=== PATIENT | female | born 1935 | race Caucasian/White ===

== ENCOUNTER 2021-03-24 10:36 | Emergency (ER) | payer MEDICARE, OTHER ==
--- NOTE | 2021-03-24 11:26 | RAD REPORT ---
EXAM DESCRIPTION: RAD - Hip Right 2 View - 03/24/2021 11:13 am CLINICAL HISTORY: PAIN COMPARISON: No comparisons FINDINGS: No definite right hip fractures identified. The right superior pubic ramus is not well jayna luated. No dislocation. Moderate right acetabular joint degenerative changes. IMPRESSION: Possible right superior pubic ramus fracture. No other fractures are identified. CT coul d confirm if clinically indicated.
--- NOTE | 2021-03-24 11:33 | EDPHYS ---
Physician Documentation [facility] Name: Katherine Serrano Age: 85 yrs Sex: Female : 1935 Arrival Date: 03/24/2021 Time: 10:40 Bed 12 Private MD: ED Physician Rupesh Bella HPI: 03/24 11:02 This 85 yrs old Female presents to ER via Ambulatory with complaints of Hip jr8 pain. 11:02 Onset: The symptoms/episode began/occurred suddenly. Associated signs and symptoms: The jr8 patient has no apparent associated signs or symptoms. Severity of symptoms: At their worst the symptoms were moderate, in the emergency department the symptoms are unchanged. The patient has not experienced similar symptoms in the past. The patient has not recently seen a physician. Patient stated that she almost fell the other day. Twisted her right hip. Since then has been in pain. Seen her primary care physician was prescribed a medication but was unable to afford it. Continues to have pain of the right hip.. Historical: - Allergies: 10:51 Aspirin; ll1 - PMHx: 10:51 Hypertensive disorder; ll1 - PSHx: 10:51 hysterectomy; ll1 - Immunization history:: Client reports receiving the 2nd dose of the Covid vaccine. - Social history:: Smoking status: Patient denies any tobacco usage or history of. ROS: 11:02 Eyes: Negative for injury, pain, redness, and discharge, ENT: Negative for injury, jr8 pain, and discharge, Neck: Negative for injury, pain, and swelling, Cardiovascular: Negative for chest pain, palpitations, and edema, Respiratory: Negative for shortness of breath, cough, wheezing, and pleuritic chest pain, Abdomen/GI: Negative for abdominal pain, nausea, vomiting, diarrhea, and constipation, Back: Negative for injury and pain, Skin: Negative for injury, rash, and discoloration, Neuro: Negative for headache, weakness, numbness, tingling, and seizure. 11:02 MS/extremity: Positive for pain, tenderness, of the Right hip. Exam: 11:02 Constitutional: This is a well developed, well nourished patient who is awake, alert, jr8 and in no acute distress. Cardiovascular: Regular rate and rhythm with a normal S1 and S2. No gallops, murmurs, or rubs. Normal PMI, no JVD. No pulse deficits. Respiratory: Lungs have equal breath sounds bilaterally, clear to auscultation and percussion. No rales, rhonchi or wheezes noted. No increased work of breathing, no retractions or nasal flaring. Abdomen/GI: Soft, non-tender, with normal bowel sounds. No distension or tympany. No guarding or rebound. No evidence of tenderness throughout. Back: No spinal tenderness. No costovertebral tenderness. Full range of motion. Skin: Warm, dry with normal turgor. Normal color with no rashes, no lesions, and no evidence of cellulitis. Neuro: Awake and alert, GCS 15, oriented to person, place, time, and situation. Cranial nerves II-XII grossly intact. Motor strength 5/5 in all extremities. Sensory grossly intact. 11:02 Musculoskeletal/extremity: Extremities: grossly normal except: noted in the Right hip: Patient has mild pain to palpation of the inguinal region and greater trochanteric region of the right hip. No external trauma noted. Full range of motion both passive and active. There is mild pain with internal rotation of the right hip. Remainder of extremity unremarkable with 2+ pulses and normal sensation. Rest of extremities unremarkable. Vital Signs: 10:49 BP 171 / 109; Pulse 85; Resp 17; Temp 98.0; Pulse Ox 100% ; Height 5 ft. 5 in. (165.10 ll1 cm); Pain 9/10; 11:45 BP 168 / 88; Pulse 80; Resp 16; Pulse Ox 100% ; vg1 MDM: 10:44 Patient medically screened. jr8 11:31 Data reviewed: vital signs, nurses notes, radiologic studies, plain films. Data jr8 interpreted: Pulse oximetry: on room air is 100 %. Interpretation: normal. Counseling: I had a detailed discussion with the patient and/or guardian regarding: the historical points, exam findings, and any diagnostic results supporting the discharge/admit diagnosis, radiology results, the need for outpatient follow up, a orthopedic surgeon, to return to the emergency department if symptoms worsen or persist or if there are any questions or concerns that arise at home. 03/24 10:52 Order name: XRAY Hip RIGHT 2 view; Complete Time: 11:30 jr8 Administered Medications: No medications were administered Disposition: 12:11 Co-signature as Attending Physician, Rupesh Bella MD I agree with the assessment and rn plan of care. Attestation: The patient's history, exam findings, diagnostics, and a summary of any interventions or procedures was reviewed in detail with Luis METZ. Disposition Summary: 03/24/21 11:32 Discharge Ordered Location: Home jr8 Problem: new jr8 Symptoms: have improved jr8 Condition: Stable jr8 Diagnosis - Fracture of superior rim of right pubis, initial encounter for closed fracture jr8 Followup: jr8 - With: Noah Avendano MD - When: 1 week - Reason: Recheck today's complaints, Continuance of care, Re-evaluation by your physician Discharge Instructions: - Discharge Summary Sheet jr8 - Simple Pelvic Fracture, Adult jr8 Forms: - Medication Reconciliation Form jr8 - Thank You Letter jr8 - Antibiotic Education jr8 - Prescription Opioid Use jr8 Prescriptions: - Tramadol 50 mg Oral Tablet - take 1 tablet by ORAL route every 8 hours as needed; 12 tablet; Refills: 0, jr8 Product Selection Permitted Signatures: Dispatcher [employer] EDMS Rupesh Bella MD MD rn Roszak, Josh, PA PA jr8 Priyanka Valdivia RN RN ll1 Corrections: (The following items were deleted from the chart) 10:51 10:51 Allergies: No Known Allergies; ll1 ll1
--- NOTE | 2021-03-24 11:33 | ER ---
Nurse's Notes [facility] Name: Katherine Serrano Age: 85 yrs Sex: Female : 1935 Arrival Date: 03/24/2021 Time: 10:40 Bed 12 Private MD: Diagnosis: Fracture of superior rim of right pubis, initial encounter for closed fracture Presentation: 03/24 10:49 Chief complaint: Patient states: R hip pain since Saturday after catching herself from ll1 falling. Pain is radiating into R leg now. Had a slip and fall on wet surface on the way in to our ER today. Landed on L knee, but denies pain. Coronavirus screen: Vaccine status: Patient reports receiving the 2nd dose of the covid vaccine. Client denies travel out of the [place] in the last 14 days. At this time, the client does not indicate any symptoms associated with coronavirus-19. Ebola Screen: Patient denies travel to an Ebola-affected area in the 21 days before illness onset. Initial Sepsis Screen: Does the patient meet any 2 criteria? No. Patient's initial sepsis screen is negative. Does the patient have a suspected source of infection? Yes: Bone or joint infection. Risk Assessment: Do you want to hurt yourself or someone else? Patient reports no desire to harm self or others. Onset of symptoms was March 20, 2021. 10:49 Method Of Arrival: Ambulatory ll1 10:49 Acuity: [place] 3 ll1 Historical: - Allergies: 10:51 Aspirin; ll1 - PMHx: 10:51 Hypertensive disorder; ll1 - PSHx: 10:51 hysterectomy; ll1 - Immunization history:: Client reports receiving the 2nd dose of the Covid vaccine. - Social history:: Smoking status: Patient denies any tobacco usage or history of. Screenin:58 Abuse screen: Denies threats or abuse. Nutritional screening: No deficits noted. vg1 Tuberculosis screening: No symptoms or risk factors identified. Fall Risk No fall in past 12 months (0 pts). No secondary diagnosis (0 pts). No IV (0 pts). Ambulatory Aid- None/Bed Rest/Nurse Assist (0 pts). Gait- Normal/Bed Rest/Wheelchair (0 pts) Mental Status- Oriented to own ability (0 pts). Total Cesar Fall Scale indicates No Risk (0-24 pts). Assessment: 10:55 General: Appears in no apparent distress. comfortable, Behavior is calm, cooperative. vg1 Pain: Complains of pain in Right hip Pain currently is 9 out of 10 on a pain scale. Neuro: Level of Consciousness is awake, alert, obeys commands, Oriented to person, place, time, situation. Cardiovascular: Patient's skin is warm and dry. Respiratory: Airway Respiratory effort is even, unlabored. GI: No signs and/or symptoms were reported involving the gastrointestinal system. : No signs and/or symptoms were reported regarding the genitourinary system. EENT: No signs and/or symptoms were reported regarding the EENT system. Derm: Skin is intact, is healthy with good turgor. Musculoskeletal: Circulation, motion, and sensation intact. Reports pain in Right hip since 03/20/21. denies fall to right hip. 10:55 Reassessment: Pt stated took 600 mg of Ibuprofen this morning around 0900. vg1 11:45 Reassessment: Patient appears in no apparent distress at this time. No changes from vg1 previously documented assessment. Patient and/or family updated on plan of care and expected duration. Pain level reassessed. Patient is alert, oriented x 3, equal unlabored respirations, skin warm/dry/pink. Vital Signs: 10:49 BP 171 / 109; Pulse 85; Resp 17; Temp 98.0; Pulse Ox 100% ; Height 5 ft. 5 in. (165.10 ll1 cm); Pain 9/10; 11:45 BP 168 / 88; Pulse 80; Resp 16; Pulse Ox 100% ; vg1 ED Course: 10:40 Patient arrived in ED. as 10:44 Luis Johnson PA is PHCP. jr8 10:44 Rupesh Bella MD is Attending Physician. jr8 10:44 Arm band placed on Patient placed in an exam room, on a stretcher. ll1 10:51 Triage completed. ll1 10:53 Cheyanne Stanton, TERRENCE is Primary Nurse. vg1 10:58 Patient has correct armband on for positive identification. Bed in low position. Call vg1 light in reach. Side rails up X 1. 10:58 No provider procedures requiring assistance completed. Patient did not have IV access vg1 during this emergency room visit. 11:13 XRAY Hip RIGHT 2 view In Process Unspecified. EDND 11:32 Noah Avendano MD is Referral Physician. jr8 Administered Medications: No medications were administered Outcome: 11:32 Discharge ordered by . lenka 11:45 Discharged to home ambulatory. vg1 11:45 Condition: stable 11:45 Discharge instructions given to patient, Instructed on discharge instructions, follow up and referral plans. medication usage, Demonstrated understanding of instructions, follow-up care, medications, Prescriptions given X 1. 11:45 Patient left the ED. vg1 Signatures: Dispatcher [employer] EDND Colleen Melo Josh, PA PA jr8 Cheyanne Stanton, RN RN vg1 Priyanka Valdivia RN RN ll1 Corrections: (The following items were deleted from the chart) 10:51 10:51 Allergies: No Known Allergies; 1 ll1
[2021-03-24 12:00] VITALS: TEMP 98; O2SAT 100
[2021-03-24 12:01] VITALS: BP 168/88
== END 2021-03-24 11:45 | disposition home or self-care (01) ==
LOC: ER 10:36
DX: S32.511A Fracture of superior rim of right pubis, initial encounter for closed fracture (principal); X50.1XXA Overexertion from prolonged static or awkward postures, initial encounter; I10 Essential (primary) hypertension; Z88.6 Allergy status to analgesic agent
CPT/HCPCS: 99283

== ENCOUNTER 2024-03-04 19:58 | Emergency (ER) | payer OTHER ==
[2024-03-04] MEDS ORDERED: SMZ./TMP. 800/160 MG TABLET ONE (20:59)
[2024-03-04] MEDS ORDERED: DIPHENHYDRAMINE 25 MG TAB/CAP ONE (20:59)
[2024-03-04] MEDS ORDERED: predniSONE 20 MG TAB ONE (20:59)
--- NOTE | 2024-03-04 21:12 | ER ---
Nurse's Notes [facility] Name: Katherine Serrano Age: 88 yrs Sex: Female : 1935 Arrival Date: 03/04/2024 Time: 19:58 Bed DX3 Private MD: Diagnosis: Acute hymenoptera envenomation, right hand cellulitis Presentation: 03/04 20:30 Chief complaint: Patient states: Stung by yellow jackets this morning on right hand. PT cm10 reports swelling and redness getting worse. No bendaryl taken. Coronavirus screen: Client denies travel out of the [place] in the last 14 days. At this time, the client does not indicate any symptoms associated with coronavirus-19. Ebola Screen: Patient denies travel to an Ebola-affected area in the 21 days before illness onset. No symptoms or risks identified at this time. Initial Sepsis Screen: Does the patient meet any 2 criteria? No. Patient's initial sepsis screen is negative. Does the patient have a suspected source of infection? No. Patient's initial sepsis screen is negative. Risk Assessment: Do you want to hurt yourself or someone else? Patient reports no desire to harm self or others. Onset of symptoms was March 04, 2024. 20:30 Method Of Arrival: Ambulatory cm10 20:30 Acuity: [place] 4 cm10 Triage Assessment: 20:31 Bite description: bite sustained to right hand by a wasp, animal information: cm10 vaccination(s) is not applicable. General: Appears in no apparent distress. comfortable, Behavior is calm, cooperative. Neuro: No deficits noted. Level of Consciousness is awake, alert, obeys commands, Oriented to person, place, time, situation, Appropriate for age. Respiratory: No deficits noted. Airway is patent Respiratory effort is even, unlabored, Respiratory pattern is regular, symmetrical. Historical: - Allergies: 20:31 No Known Allergies; cm10 - PMHx: 20:31 Hypertensive disorder; cm10 - PSHx: 20:31 hysterectomy; cm10 - Immunization history:: Adult Immunizations up to date, Client reports receiving the 2nd dose of the Covid vaccine, Last tetanus immunization: unknown. - Infectious Disease History:: Denies. - Social history:: Smoking status: Patient denies any tobacco usage or history of. - Family history:: not pertinent. Screenin:27 [facility] ED Fall Risk Assessment (Adult) History of falling in the last 3 months, lg3 including since admission No falls in past 3 months (0 pts) Confusion or Disorientation No (0 pts) Intoxicated or Sedated No (0 pts) Impaired Gait No (0 pts) Mobility Assist Device Used No (0 pt) Altered Elimination No (0 pt) Score/Fall Risk Level 0 - 2 = Low Risk Oriented to surroundings, Maintained a safe environment, Educated pt \T\ family on fall prevention, incl call for assistance when getting out of bed, Assessed \T\ reinforced patient's understanding of fall precautions. Abuse screen: Denies threats or abuse. Denies injuries from another. Nutritional screening: No deficits noted. Tuberculosis screening: No symptoms or risk factors identified. Assessment: 21:27 General: Appears in no apparent distress. comfortable, Behavior is calm, cooperative. lg3 Pain: Complains of pain in right hand Pain does not radiate. Pain currently is 3 out of 10 on a pain scale. Neuro: No deficits noted. Level of Consciousness is awake, alert, obeys commands, Oriented to person, place, time, situation, Appropriate for age. Cardiovascular: No deficits noted. Denies chest pain, shortness of breath, Capillary refill < 3 seconds Clubbing of nail beds is absent JVD is absent Patient's skin is warm and dry. Respiratory: No deficits noted. Airway is patent Respiratory effort is even, unlabored, Respiratory pattern is regular, symmetrical. GI: No deficits noted. No signs and/or symptoms were reported involving the gastrointestinal system. : No deficits noted. No signs and/or symptoms were reported regarding the genitourinary system. EENT: No deficits noted. No signs and/or symptoms were reported regarding the EENT system. Derm: Skin is intact, is healthy with good turgor, Skin is dry, Skin is normal, Skin temperature is warm. Musculoskeletal: Circulation, motion, and sensation intact. Range of motion: intact in all extremities, Swelling present in right hand. Vital Signs: 20:30 BP 190 / 83; Pulse 67; Resp 16; Temp 97; Pulse Ox 100% ; Weight 49.44 kg (R); Height 5 cm10 ft. 5 in. (R); Pain 7/10; 21:27 BP 181 / 84; Pulse 61; Resp 17 S; Temp 98.1(O); Pulse Ox 100% on R/A; lg3 20:30 Body Mass Index 18.14 (49.44 kg, 165.1 cm) cm10 20:30 Pain Scale: Adult cm10 Nasrin Coma Score: 03/05 03:25 Eye Response: spontaneous(4). Motor Response: obeys commands(6). Verbal Response: sp4 oriented(5). Total: 15. ED Course: 03/04 20:03 Patient arrived in ED. jj6 20:07 Shar Leon MD is Attending Physician. sp4 20:31 Triage completed. cm10 20:32 Arm band placed on Patient placed in waiting room. cm10 21:27 Patient has correct armband on for positive identification. lg3 21:27 No provider procedures requiring assistance completed. Patient did not have IV access lg3 during this emergency room visit. Administered Medications: 21:05 Drug: predniSONE PO 60 mg PO once Route: PO; lg3 21:31 Follow up: Response: No adverse reaction lg3 21:05 Drug: diphenhydrAMINE PO 25 mg PO once Route: PO; lg3 21:31 Follow up: Response: No adverse reaction lg3 21:05 Drug: Trimethoprim-Sulfamethoxazole PO (160 mg-800 mg (DS) 1 tablet PO once Route: PO; lg3 21:30 Follow up: Response: No adverse reaction lg3 Medication: 21:27 VIS not applicable for this client. lg3 Point of Care Testing: Blood Glucose: 20:42 Blood Glucose: 139 mg/dL; cm10 Ranges: Outcome: 21:12 Discharge ordered by . sp4 21:27 Discharged to home ambulatory, lg3 21:27 Condition: stable 21:27 Discharge instructions given to patient, Instructed on discharge instructions, follow up and referral plans. medication usage, Demonstrated understanding of instructions, follow-up care, medications, Prescriptions given X 3, 21:31 Patient left the ED. lg3 Signatures: Vanessa Luna RN RN lg3 Phyllis Loja jjose de [email or web address] Shar Leon MD MD sp4 Shakira Melo RN RN cm10 Corrections: (The following items were deleted from the chart) 20:31 20:31 Allergies: Aspirin; cm10 cm10
--- NOTE | 2024-03-04 21:12 | EDPHYS ---
Physician Documentation [facility] Name: Katherine Serrano Age: 88 yrs Sex: Female : 1935 Arrival Date: 03/04/2024 Time: 19:58 Bed DX3 Private MD: ED Physician Shar Leon HPI: 03/04 20:07 This 88 yrs old Female presents to ER via Unassigned with complaints of sp4 Insect Bite. 03/05 03:25 Very pleasant 88-year-old female presents with acute redness pain to the right arm and sp4 hand after wasp bite. Historical: - Allergies: 03/04 20:31 No Known Allergies; cm10 - PMHx: 20:31 Hypertensive disorder; cm10 - PSHx: 20:31 hysterectomy; cm10 - Immunization history:: Adult Immunizations up to date, Client reports receiving the 2nd dose of the Covid vaccine, Last tetanus immunization: unknown. - Infectious Disease History:: Denies. - Social history:: Smoking status: Patient denies any tobacco usage or history of. - Family history:: not pertinent. ROS: 03/05 03:25 Constitutional: Negative for fever, chills, and weight loss, right hand redness sp4 tenderness pain swelling All other systems are negative, Exam: 03:25 Constitutional: This is a well developed, well nourished patient who is awake, alert, sp4 and in no acute distress. Head/Face: Normocephalic, atraumatic. Eyes: Pupils equal round and reactive to light, extra-ocular motions intact. Lids and lashes normal. Conjunctiva and sclera are not injected. Cornea within normal limits. Periorbital areas with no swelling, redness, or edema. ENT: Nares patent. No nasal discharge, no septal abnormalities noted. Tympanic membranes are normal and external auditory canals are clear. Oropharynx with no redness, swelling, or masses, exudates, or evidence of obstruction, uvula midline. Mucous membranes moist. Neck: Trachea midline, no thyromegaly or masses palpated, and no cervical lymphadenopathy. Supple, full range of motion without nuchal rigidity, or vertebral point tenderness. Chest/axilla: Normal chest wall appearance and motion. Nontender with no deformity. No lesions are appreciated. Cardiovascular: Regular rate and rhythm with a normal S1 and S2. No gallops, murmurs, or rubs. Normal PMI, no JVD. No pulse deficits. Respiratory: Lungs have equal breath sounds bilaterally, clear to auscultation and percussion. No rales, rhonchi or wheezes noted. No increased work of breathing, no retractions or nasal flaring. Abdomen/GI: Soft, with normal bowel sounds. No distension or tympany. No guarding or rebound. No evidence of tenderness throughout. Back: No spinal tenderness. No costovertebral tenderness. Skin: Warm, dry with normal turgor. Right hand exam reveals right dorsal hand the redness tenderness swelling and heat consistent with either cellulitis or acute allergic reaction. MS/ Extremity: Pulses equal, no cyanosis. Neurovascular intact. Full, normal range of motion. Neuro: Awake and alert, GCS 15, oriented to person, place, time, and situation. Cranial nerves II-XII grossly intact. Motor strength 5/5 in all extremities. Sensory grossly intact. Psych: Awake, alert, with orientation to person, place and time. Behavior, mood, and affect are within normal limits Vital Signs: 03/04 20:30 BP 190 / 83; Pulse 67; Resp 16; Temp 97; Pulse Ox 100% ; Weight 49.44 kg (R); Height 5 cm10 ft. 5 in. (R); Pain 7/10; 21:27 BP 181 / 84; Pulse 61; Resp 17 S; Temp 98.1(O); Pulse Ox 100% on R/A; lg3 20:30 Body Mass Index 18.14 (49.44 kg, 165.1 cm) cm10 20:30 Pain Scale: Adult cm10 Tarpley Coma Score: 03/05 03:25 Eye Response: spontaneous(4). Motor Response: obeys commands(6). Verbal Response: sp4 oriented(5). Total: 15. MDM: 03/04 21:09 Patient medically screened. sp4 03/05 03:25 Differential Diagnosis altered mental status, sepsis, flu, Cellulitis . Data reviewed: sp4 vital signs, nurses notes. ED course: Exam consistent with either allergic reaction or cellulitis. Will treat as both . 03/04 20:54 Order name: Glucose, Ancillary Testing; Complete Time: 21:10 EDMS 03/04 20:40 Order name: Accucheck Blood Glucose; Complete Time: 20:42 sp4 Administered Medications: 03/04 21:05 Drug: predniSONE PO 60 mg PO once Route: PO; lg3 21:31 Follow up: Response: No adverse reaction lg3 21:05 Drug: diphenhydrAMINE PO 25 mg PO once Route: PO; lg3 21:31 Follow up: Response: No adverse reaction lg3 21:05 Drug: Trimethoprim-Sulfamethoxazole PO (160 mg-800 mg (DS) 1 tablet PO once Route: PO; lg3 21:30 Follow up: Response: No adverse reaction lg3 Point of Care Testing: Blood Glucose: 20:42 Blood Glucose: 139 mg/dL; cm10 Ranges: Critical Glucose Levels:Adult <50 mg/dl or >400 mg/dl <40 mg/dl or >180 mg/dl Disposition: 03/05 03:27 Chart complete. sp4 Disposition Summary: 03/04/24 21:12 Discharge Ordered Notes: Location: Home sp4 Problem: new sp4 Symptoms: have improved sp4 Condition: Stable sp4 Diagnosis - Acute hymenoptera envenomation, right hand cellulitis sp4 Followup: sp4 - With: Private Physician - When: 10 - 14 days - Reason: Recheck today's complaints Discharge Instructions: - Discharge Summary Sheet sp4 - Insect Bite, Adult, [id number] sp4 Forms: - Patient Portal Instructions sp4 Prescriptions: - Benadryl 25 mg Oral capsule - take 1 capsule ORAL route every 12 hours As needed PRN redness and itching; 30 sp4 tablet; Refills: 0, Product Selection Permitted - Bactrim DS 800-160 mg Oral Tablet - take 1 tablet ORAL route every 12 hours for 10 days; 20 tablet; Refills: 0, sp4 Product Selection Permitted - Prednisone 20 mg Oral Tablet - take 2 tablets ORAL route once daily for 5 days; 10 tablet; Refills: 0, Product sp4 Selection Permitted Signatures: Vanessa Luna RN RN lg3 Shar Leon MD MD sp4 Shakira Melo RN RN cm10 Corrections: (The following items were deleted from the chart) 03/04 20:31 20:31 Allergies: Aspirin; cm10 cm10
[2024-03-04 21:43] VITALS: O2SAT 100
[2024-03-04 21:45] VITALS: BP 181/84; TEMP 98.1
== END 2024-03-04 21:31 | disposition home or self-care (01) ==
LOC: ER 19:58
DX: T63.481A Toxic effect of venom of other arthropod, accidental (unintentional), initial encounter (principal); L03.113 Cellulitis of right upper limb
CPT/HCPCS: 82947; 99283; J7512